=== PATIENT | female | born 1960 | race Asian ===

== ENCOUNTER 2016-08-07 10:25 | Emergency (ER) | payer OTHER ==
[~2016-08-07] VITALS: Ht 157.5 cm; Wt 72.7 kg
[2016-08-07] MEDS ORDERED: HYDR-309 PO (10:37)
[2016-08-07] MEDS ORDERED: METF500T4 PO (10:37)
[2016-08-07] MEDS ORDERED: PENI500T2 PO (10:37)
[2016-08-07 10:42] LABS: GLUCOSE,POINT OF CARE 235 MG/DL (70-110)
[2016-08-07] MEDS ORDERED: IBUPROFEN 800 MG TABLET PO ONE (11:00)
[2016-08-07] MEDS ORDERED: CefTRIAXone SODIUM 1 GM/VIAL IM ONE (11:00)
[2016-08-07] MEDS ORDERED: LIDOCAINE HCL/PF 1% 2 ML VIAL IM ONE (11:00)
[2016-08-07 11:34] VITALS: BP 123/70
== END 2016-08-07 12:20 | disposition home or self-care (01) ==
LOC: EMS 10:27
DX: K12.2 Cellulitis and abscess of mouth (principal); E11.9 Type 2 diabetes mellitus without complications; I10 Essential (primary) hypertension; E78.00 Pure hypercholesterolemia, unspecified; F17.210 Nicotine dependence, cigarettes, uncomplicated
CPT/HCPCS: 82962; 96372; 99284; J0696; J3490